=== PATIENT | female | born 1990 ===

== ENCOUNTER 2024-09-21 04:34 | Emergency (ER) | payer BC, SELFPAY ==
[2024-09-21 04:42] VITALS: BP 110/74
[2024-09-21 05:17] VITALS: BP 89/60
[2024-09-21 05:37] LABS: % Basophils 0.3 % (0-2); % Eosinophils 0.3 % (0-6); % Immature Granulocytes 0.4 % (0-0.5); % Lymphocytes 9.6 % (20.5-51.1); % Monocytes 3.1 % (1.7-9.3); % Neutrophils 86.3 % (42.2-75.2); Absolute Immature Granulocytes 0.1 10^3/uL (0-0.05); Absolute Lymphocytes 1.1 10^3/uL (1.2-3.4); Absolute Monocytes 0.4 10^3/uL (0.1-0.6); Absolute Neutrophils 10.1 10^3/uL (1.4-6.5); Hematocrit 37.8 % (37.0-47.0); Hemoglobin 12.4 g/dL (12.0-16.0); Mean Corp Hgb Conc. 32.8 g/dL (33.0-37.0); Mean Corpuscular Hgb 24.5 pg (27.0-31.0); Mean Corpuscular Volume 74.7 fL (81.0-99.0); Mean Platelet Volume 9.6 fL (7.4-10.4); Nucleated Red Blood Cells % 0 %; Platelet Count 272 10^3/uL (130-400); Red Blood Cell Count 5.06 10^6/uL (4.20-5.40); Red Cell Dist. Width 13.2 % (11.5-14.5); White Blood Cell Count 11.7 10^3/uL (4.8-10.8)
[2024-09-21 05:55] LABS: ALT (SGPT) 29 U/L (0-35); AST (SGOT) 25 U/L (14-36); Albumin 4.6 g/dl (3.5-5.0); Alkaline Phosphatase 66 U/L (38-126); Blood Urea Nitrogen 11 mg/dl (7-17); Calcium 9.2 mg/dl (8.4-10.2); Carbon Dioxide 25 mmol/L (22-30); Chloride 106 mmol/L (98-107); Glucose 124 mg/dl (70-99); Lipase 54 U/L (23-300); Potassium 4.6 mmol/L (3.5-5.1); Sodium 141 mmol/L (135-145); Total Bilirubin 0.4 mg/dl (0.2-1.3); Total Protein 8.3 g/dl (6.3-8.2); eGFR > 60.00
[2024-09-21 06:00] VITALS: BP 97/63
--- NOTE | 2024-09-21 06:32 | ED.GENMED ---
History of Present Illness
General
Chief Complaint: Abdominal Pain
Source: patient
Exam Limitations: none
Time Seen by Provider: 09/21/24 06:23
Nursing documentation reviewed up to this point in time: agreed with
History of Present Illness
History of Present Illness:
34-year-old female with no reported chronic medical issues presents to the emergency room for evaluation of abdominal pain. Patient reports onset of symptoms last night around 8 or 9 PM and they were waxing and waning all night. She reports sharp
pain in the upper abdomen that radiates across upper abdomen. Symptoms somewhat worse when laying down, no relieving factors noted. She reports initially symptoms were relatively mild and infrequent but as the night went on they became more
frequent and more intense typically lasting for about a minute at a time but coming and going quite frequently. Fortunately since arrival in the ER symptoms have slightly improved. She reports she experienced associated nausea and had 3 episodes
of vomiting. No diarrhea in fact has been mildly constipated today. She reports sensation of bloating. She denies any urinary symptoms�denies dysuria, hematuria, change in her frequency. She denies any vaginal bleeding or discharge. Last
menstrual period was 2 weeks ago. She denies prior abdominal surgeries. She says she has had symptoms with bloating/gas in the past but typically not this intense.
Review of Systems
Review of Systems
All Other Systems: ROS reviewed and negative except as documented in HPI and ROS
Constitutional: Denies fever
Respiratory: Denies trouble breathing
Cardiac: Denies chest pain
ABD/GI: Reports abdominal pain, nausea, vomiting and constipated
: Denies dysuria, frequency, flank pain or bleeding
Musculoskeletal: Denies neck pain or back pain
Neurological: Denies headache
Phy Exam
Physical Exam
Physical Exam:
General: Awake, alert; no acute distress
Head: Normocephalic, atraumatic
Eyes: Conjunctiva normal, sclera anicteric
Throat: Airway intact, handling secretions
Neck: Trachea midline, supple without meningismus
Lungs: Clear to auscultation bilaterally, no wheezing, rales, rhonchi
Heart: Regular rate and rhythm, no murmurs, gallops, or rubs
Abd: Normal and active bowel sounds, soft, non distended, mildly tender across the upper abdomen with no masses, no peritoneal signs
Neuro: No gross deficits
Extremities: Warm and well-perfused with no edema
Scores
Heart Failure Risk
Heart Failure Risk Score: Not Applicable
Heart Score for Chest Pain Patients
STEMI patient?: Not applicable
Withdrawal Assessment of Alcohol
Withdrawal Assessment Completed?: Not applicable
Course
Orders/Labs/Results
Orders:
Orders
09/21/24 05:11
Complete Blood Count/With Diff Urgent
Comprehensive Metabolic Panel Urgent
HCG, Serum Qualitative Screen Urgent
Comment: ADD ON
Lipase Urgent
09/21/24 06:31
Add On- LAB Urgent
Tests Added?: HCG qual
US Abdomen Complete/Upper Urgent
Comment:
Reason For Exam: upper abd pain
Abnormal Lab Results
09/21/24
05:11
WBC 11.7 H 10^3/uL
(4.8-10.8)
MCV 74.7 L fL
(81.0-99.0)
MCH 24.5 L pg
(27.0-31.0)
MCHC 32.8 L g/dL
(33.0-37.0)
Abs Immat Gran (auto) 0.1 H 10^3/uL
(0-0.05)
Absolute Neuts (auto) 10.1 H 10^3/uL
(1.4-6.5)
Absolute Lymphs (auto) 1.1 L 10^3/uL
(1.2-3.4)
Neutrophils % 86.3 H %
(42.2-75.2)
Lymphocytes % 9.6 L %
(20.5-51.1)
Glucose 124 H mg/dl
(70-99)
Total Protein 8.3 H g/dl
(6.3-8.2)
09/21/24 05:11
09/21/24 05:11
Vital Signs
Initial and Last Documented VS:
Initial Vital Signs
Temp Pulse Resp BP Pulse Ox
37.0 C 70 22 110/74 100
09/21/24 04:42 09/21/24 04:42 09/21/24 04:42 09/21/24 04:42 09/21/24 04:42
Last Documented Vital Signs
Temp Pulse Resp BP Pulse Ox
37.0 C 70 22 97/63 100
09/21/24 04:42 09/21/24 04:42 09/21/24 04:42 09/21/24 06:00 09/21/24 06:01
MDM/Problems Addressed
Differential Diagnosis Includes:
GERD, gastritis, PUD, cholelithiasis, cholecystitis, pancreatitis, constipation
MDM/Problems Addressed:
34-year-old female presents for evaluation of upper abdominal pain with nausea and vomiting intermittently but relatively frequent and rather intense overnight. Fortunately since arrival in the ER his symptoms have generally improved right now she
is asymptomatic. Vitals and exam as above. She had lab work sent in triage including a CBC which shows a slight leukocytosis to 11.7. CMP no clinically significant abnormalities�notably normal LFTs. Her lipase is normal. Added hCG. Will check
upper abdominal ultrasound. Monitor and reassess after the above.
Ultrasound shows no cholelithiasis or other acute abnormalities. hCG is negative. Clinical reassessment patient with no recurrence of symptoms. Suspect likely GERD/gastritis. Will plan to start on PPI, stable for discharge can follow-up with
primary doctor as an outpatient. Advised regarding bland diet. Patient feels very comfortable with this plan. Spoke about return precautions all questions answered.
*Radiology
Radiology exam reviewed: radiology read reviewed
*Pulse Oximetry
Patient hypoxic: no
*Critical Care Note
Total Time (30-74mins, 75-104mins- exclusive of procedures): Not Applicable
Data Reviewed
Source: patient
ED Attending Note
-
Portions of this chart may have been created with voice recognition software.� Occasional wrong word or��sound alike� substitutions may have occurred due to the inherent limitations of voice recognition software.
Discharge Plan
Departure
Patient Disposition: Home (Routine Discharge)
Date of Disposition: 09/21/24
Time of Disposition: 08:14
Patient with high blood pressure during this ER visit?: No
Discharge Problem:
Abdominal pain
Instructions: Acid Reflux and GERD in Adults (DC), [place] diet, Abdominal Pain
Prescriptions:
New
pantoprazole [Protonix] 40 mg tablet,delayed release (DR/EC)
40 mg PO DAILY Qty: 30 0RF
Referrals:
NONE,* [Family Provider] -
Activity Restrictions/Additional Instructions:
You should take pantoprazole once daily as prescribed for the next 2 to 4 weeks. You should avoid eating within 2 hours of bedtime and for the next few days keep your diet bland. You should follow-up with your primary care physician within the
next week. If your symptoms are worsening or if you develop any new symptoms that are concerning to you should return to the emergency room for reassessment.
Thank you for visiting the Emergency Department at [facility].
1. Please schedule a follow up appointment as directed. Call first thing tomorrow morning to make an appointment.
2. If indicated, please take your medications as instructed and indicated on discharge paperwork.
3. If any of your symptoms do not improve, or persist, or become more severe within 6-12 hours, please return to the emergency department for further care.
4. Please return to the emergency department if you develop a headache, neck pain/stiffness, fever greater than 100.4F, chest pain, shortness of breath, persistent nausea, vomiting, slurred speech, difficulty walking, numbness/tingling, weakness,
signs of infection or any other symptoms that are worrisome to you.
Please call [phone] if you have any questions.
Interventions
Interventions:
*Risk Screen - Suicide Last Done: 09/21/24 04:42
*General Assessment Last Done: 09/21/24 05:06
*Neglect/Abuse Screening Last Done: 09/21/24 04:42
*ED- Fall Risk Assessment Last Done: 09/21/24 05:06
*ED COVID-19 Vaccine History Last Done: 09/21/24 05:06
ZH-Zdpcgo-Accuaynvec Assessment Last Done: 09/21/24 05:06
Discharge Date and Time
Print Language: ALGERIAN
[2024-09-21 07:07] LABS: HCG, Serum Qualitative Screen Negative
[2024-09-21] MEDS: PROTONIX 40 MG PO (08:42)
[2024-09-21 08:48] VITALS: BP 98/72
== END 2024-09-21 08:35 | disposition home or self-care (01) ==
LOC: EMR 04:34
PROVIDERS: Emergency Medicine; EMERGENCY PHYSICIAN Emergency Medicine
DX: R10.10 Upper abdominal pain, unspecified (principal)
CPT/HCPCS: 99284; 76700; 80053; 83690; 84703; 85025